=== PATIENT | female | born 1985 | race Caucasian/White ===

== ENCOUNTER 2024-10-18 13:06 | Emergency (ER) | payer MEDICAID ==
[~2024-10-18] VITALS: Ht 170.2 cm; Wt 75.0 kg
[2024-10-18 13:14] VITALS: TEMP 98.1
[2024-10-18] MEDS: IBUPROFEN 400 MG TABLET PO ONE (15:33)
[2024-10-18 16:05] VITALS: BP 131/70; PULSE 83; RESP 16; O2SAT 99
== END 2024-10-18 16:15 | disposition home or self-care (01) ==
LOC: EMS 13:14
DX: G56.02 Carpal tunnel syndrome, left upper limb (principal)
CPT/HCPCS: 99283